=== PATIENT | female | born 1965 | race Asian ===

== ENCOUNTER 2020-06-05 13:04 | Outpatient (RCR) | payer BC, SELFPAY ==
[2020-06-05] MEDS: COVID-19 VACC, MRNA(PFIZER)/PF 30 MCG/0.3 ML SYRINGE IM (09:28)
[2020-06-26] MEDS: COVID-19 VACC, MRNA(PFIZER)/PF 30 MCG/0.3 ML SYRINGE IM (09:13)
== END 2020-06-05 23:59 ==
LOC: IMMUN 13:04
PROVIDERS: Visit Provider Family Medicine
DX: Z23 Encounter for immunization (principal)
CPT/HCPCS: 0001A; 0002A; 91300